=== PATIENT | female | born 1985 | race Two or more races ===

== ENCOUNTER 2021-07-28 00:01 | Inpatient (IN) | payer OTHER ==
[~2021-07-28] VITALS: Ht 162.6 cm; Wt 47.6 kg
[2021-07-28] MEDS ORDERED: ASA81 MG PO (01:48)
[2021-07-28] MEDS ORDERED: HYDROXYCHLOROQ100 MG PO (01:48)
== END 2021-07-29 23:27 | disposition home or self-care (01) | DRG 812 ==
LOC: ER 00:01 → MEDI 09:22
PROVIDERS: ADMIT Internal Medicine; ATTEND Internal Medicine
PROC: 30233N1 Transfusion of Nonautologous Red Blood Cells into Peripheral Vein, Percutaneous Approach (ICD-10-PCS; principal; 2021-07-28)
PROC: BW28ZZZ Computerized Tomography (CT Scan) of Head (ICD-10-PCS; 2021-07-28)
PROC: B54CZZZ Ultrasonography of Left Lower Extremity Veins (ICD-10-PCS; 2021-07-28)
DX: D50.8 Other iron deficiency anemias (principal); M05.20 Rheumatoid vasculitis with rheumatoid arthritis of unspecified site; R20.2 Paresthesia of skin

== ENCOUNTER 2021-08-02 15:54 | Emergency (ER) | payer OTHER ==
[~2021-08-02] VITALS: Ht 162.6 cm; Wt 47.6 kg
[~2021-08-02 15:54] MED LIST: ASA81 MG PO; HYDROXYCHLOROQ100 MG PO
[2021-08-02] MEDS ORDERED: CLONAZEPAM0.5 MG PO (23:07)
== END 2021-08-02 23:41 | disposition home or self-care (01) ==
LOC: ER 15:54
DX: R07.89 Other chest pain (principal); R00.2 Palpitations; R20.2 Paresthesia of skin; D64.89 Other specified anemias; I77.6 Arteritis, unspecified; F41.0 Panic disorder [episodic paroxysmal anxiety]; Z03.818 Encounter for observation for suspected exposure to other biological agents ruled out